=== PATIENT | female | born 1945 | race Hispanic/Latino ===

== ENCOUNTER 2023-11-26 12:29 | Emergency (ER) | payer MEDICARE, OTHER ==
[~2023-11-26] VITALS: Ht 154.9 cm; Wt 75.3 kg
[2023-11-26 13:20] LABS: BASOPHILS # (AUTO) 0.08 K/uL (0.00-0.20); EOSINOPHILS # (AUTO) 0.08 K/uL (0.00-0.70); HEMATOCRIT 45.3 % (36-48); IMMATURE GRANULOCYTE ABSOLUTE 0.03 K/uL (0-1); LYMPHOCYTES % (AUTO) 23.4 % (21.0-51.0); MEAN CORPUSCULAR HEMOGLOBIN 31.1 pg (27.0-33.0); MEAN CORPUSCULAR HGB CONC 34.2 g/dL (32.0-36.0); MONOCYTES # (AUTO) 0.5 K/uL (0.1-1.0); MONOCYTES % (AUTO) 5.6 % (3.0-13.0); NEUTROPHILS # (AUTO) 5.8 K/uL (1.8-7.7); NEUTROPHILS % (AUTO) 68.6 % (40.0-77.0); PLATELET COUNT (AUTO) 277 K/uL (130-400); RED BLOOD CELL COUNT(AUTO) 4.98 MIL/uL (4.00-5.50); RED CELL DISTRIBUTION WIDTH 13.6 % (11.0-15.5); WHITE BLOOD COUNT (AUTO) 8.4 K/uL (4.8-10.8)
[2023-11-26 13:33] LABS: BILIRUBIN,TOTAL 1.9 mg/dL (0.2-1.0); CREATININE 0.8 mg/dL (0.5-1.0); TOTAL PROTEIN, SERUM 7.9 g/dL (6.0-8.3)
[2023-11-26 13:34] LABS: POTASSIUM 2.8 mmol/L (3.5-5.1)
[2023-11-26 13:45] LABS: B-TYPE NATRIURETIC PEPTIDE 13 pg/mL (0-100)
[2023-11-26] MEDS: POTASSIUM BICARB/CIT AC 25 MEQ TABLET.EFF PO ONE (14:22)
[2023-11-26] MEDS: ALBUTEROL 0.083% 2.5 MG/3 ML INH IH ONE (16:47)
[2023-11-26 16:48] VITALS: PULSE 62; RESP 16
[2023-11-26 17:26] LABS: CREATININE 0.9 mg/dL (0.5-1.0); POTASSIUM 4.1 mmol/L (3.5-5.1)
[2023-11-26 17:41] VITALS: BP 138/75; PULSE 79; RESP 16; O2SAT 96
== END 2023-11-26 18:15 | disposition home or self-care (01) ==
LOC: EDH 12:29
DX: R06.09 Other forms of dyspnea (principal); E87.6 Hypokalemia; E80.6 Other disorders of bilirubin metabolism; I11.0 Hypertensive heart disease with heart failure; I50.9 Heart failure, unspecified; J44.9 Chronic obstructive pulmonary disease, unspecified; E78.00 Pure hypercholesterolemia, unspecified; Z90.49 Acquired absence of other specified parts of digestive tract; Z98.890 Other specified postprocedural states
CPT/HCPCS: 36415; 71045; 80048; 80053; 83880; 84484; 85025; 93005; 94640; 94664

== ENCOUNTER 2025-01-14 05:38 | Observation (INO) | payer MEDICARE, OTHER ==
[2025-01-12 12:39] LABS: IMMATURE GRANULOCYTE ABSOLUTE 0.04 K/uL (0-1); NUCLEATED RED BLOOD CELLS 0.0 % (0.0-0.19); PLATELET COUNT (AUTO) 256 K/uL (130-400); RED BLOOD CELL COUNT(AUTO) 4.43 MIL/uL (4.00-5.50); RED CELL DISTRIBUTION WIDTH 13.5 % (11.0-15.5); WHITE BLOOD COUNT (AUTO) 7.9 K/uL (4.8-10.8)
[2025-01-12 12:47] LABS: CREATININE 0.7 mg/dL (0.5-1.0); GLOMERULAR FILTR. RATE CALC 89.0 mL/min (>90); GLUCOSE,RANDOM 99.0 mg/dL (70-105); SODIUM SERUM 145.0 mmol/L (136-145); UREA NITROGEN, BLOOD 16.0 mg/dL (7-18)
[2025-01-12 12:48] VITALS: BP 123/54; PULSE 59; RESP 13; TEMP 97.5
[2025-01-12 12:48] LABS: INR 0.98 (0.85-1.15)
--- NOTE | 2025-01-12 13:45 | NUR ---
preop incentive spirometry done by corona saleh
[2025-01-14] VITALS (25 sets, daily range): BP systolic 109–144; BP diastolic 49–76; PULSE 50–66; RESP 13–20; TEMP 97.5–98.7
[~2025-01-14] VITALS: Ht 152.4 cm; Wt 74.4 kg
[~2025-01-14 05:38] MED LIST: ATOR40TA71 PO; BREYNA IH; CHOL100040 PO; CLOP75TA32 PO; MAGN250C PO; METO25TA6 PO; MVI PO; VITAMIN B12 PO
[2025-01-14] MEDS ORDERED: MIDAZOLAM HCL 1 MG/ML 2ML VIAL ONE (06:46)
[2025-01-14] MEDS ORDERED: TRANEXAMIC ACID 1000MG/10ML ONE (07:31)
[2025-01-14] MEDS: LACTATED RINGERS 1000ML 1,000 ML IV ONE (07:54)
[2025-01-14] MEDS ORDERED: NEOSTIGMINE METHYLSULFATE 1MG/ML IV ONE (09:54)
[2025-01-14] MEDS ORDERED: GLYCOPYRROLATE 0.2 MG/ML 5 ML VIAL ONE (09:54)
[2025-01-14] MEDS ORDERED: FERROUS FUMARATE 324 MG TABLET PO PRN (10:00)
[2025-01-14] MEDS ORDERED: PoTASSium chl 10% ELIXIR 20MEQ 20 MEQ/15 ML UDCUP PO PRN (10:00)
[2025-01-14] MEDS ORDERED: HYDROcodone/APAP 5/325 1 TAB TABLET PO PRN (10:00)
[2025-01-14] MEDS ORDERED: BREYNA IH PRN (10:00)
[2025-01-14] MEDS ORDERED: CALCIUM CARB 500MG PO PRN (10:00)
--- NOTE | 2025-01-14 11:40 | HMCIMG ---
EXAM: CR right Knee, 2 View. CLINICAL HISTORY: S/P RT TKA SURGERY COMPARISON: None provided. FINDINGS: Cemented right total knee arthroplasty is in near anatomic alignment with no periprosthetic fracture appreciated. There are appropriate postsurgical changes about the right knee joint. IMPRESSION: 1. Status post right total knee arthroplasty with near anatomic alignment; no periprosthetic fracture. /Sadorus
--- NOTE | 2025-01-14 11:53 | OP ---
Operative Note: DATE OF PROCEDURE: 01/14/25 PREOPERATIVE DIAGNOSIS: Right knee osteoarthritis. POSTOPERATIVE DIAGNOSIS: Right knee osteoarthritis. PROCEDURE PERFORMED: Right knee total knee arthroplasty. SURGEON: Alicia Padron MD STONE CUTTER: Darlyn Johnson and Korin Gaxiola. ANESTHESIA: General with adductor canal block. ANESTHESIA: HAIRSPRING CUTTER Sidney Weiss. ESTIMATED BLOOD LOSS: 50cc. COMPLICATIONS: None. DRAINS: None. SPECIMENS REMOVED: resected bone. Not sent to pathology. IMPLANTS: [employer] Journey II BCS size 4 Oxinium femur, size 3 tibial base plate, 29 x 7.5 mm patella, 12 mm polyethylene STATEMENT OF MEDICAL NECESSITY: The patient is a 79-year-old female who suffers from right knee osteoarthritis failing conservative management. After discussion of the risks, benefits, and alternatives with the patient, they voluntarily agreed to undergo the aforementioned procedure. DESCRIPTION OF PROCEDURE: Patient was properly identified in the preoperative holding area. Surgical site marking was verified and surgery consent reviewed. The patient was then taken to the operating room and placed in supine position on the OR table. After induction of general anesthesia, preoperative antibiotics were given, all bony prominences were well-padded, and a well padded tourniquet was applied but not inflated at this time. The right lower extremity was then prepped and draped in usual sterile fashion. Surgical time out was done verifying correct surgery, side, site, and location to be performed. We then began the procedure by exsanguinating the limb using an Esmarch and inflating the tourniquet to 350 mmHg. At this point, we made an anterior midline incision using a 10 blade, coming down sharply the level of the fascia. Skin flaps were elevated medially and laterally. We then obtained a clean 10 blade and performed a standard medial parapatellar arthrotomy. We excised the infrapatellar fat pad. We performed our soft tissue releases off of the tibia. We transected the ACL and removed the anterior portion of the medial & lateral meniscus. We then brought the knee into hyperflexion with the patella everted. We used our entry reamer to enter the femoral canal. We then placed our intramedullary cutting guide for our distal femoral cutting block. We then performed our distal femoral osteotomy ensuring appropriate rotation and removed the bony wafer. However, secondary to hypoplastic lateral femoral condyle we elected to go ahead and take a plus two cut off of the distal femur. We then removed these pins and block and then used jig 2 to size the distal femur with the after mentioned size found. We then placed our 5-in-1 cutting block in 5 degrees of external rotation and took our 5 cuts ensuring to protect the patellar tendon and the collateral ligaments. We then removed the cutting block and our bony fragments using a curved osteotome. We then placed our PCL retractor subluxating the tibia anteriorly. Using an extra medullary tibial cutting guide, we hung the block for our proximal tibial cut taking 2 mm off the more diseased portion. Prior to pinning this block in place, we ensured appropriate varus/valgus alignment and posterior slope similar to the [place] slope of the patient's knee. We then performed our proximal tibial osteotomy and removed the bony wafer using Bovie electrocautery to release any remaining soft tissue attachments. We then used our tibial sizing paddle and checked once more for varus & valgus alignment and found this to be appropriate. At this point, we pinned our tibial paddle in place. We then removed the PCL retractor and subluxated the tibia posteriorly while we placed our femoral trial component. We then finished preparing the notch with the reamer and box chisel. The notch portion of the trial femoral component was then placed. A posterior stabilized polyethylene, size 9 trial was placed. This was immediately increased up to a size 11 due to laxity with varus and valgus stress. The knee was then taken through range of motion and found to have stable full range of motion. We then placed a bump under the ankle and everted the patella to perform our freehand cut of the undersurface the patella. We then sized our patella and reamed to the lug holes for this. We placed our trial patellar component and begin to take the knee through range of motion. The patella had significant lateral tracking so we performed a lateral release that was aggressive. We checked our tibial component rotation to ensure this was not causing lateral pull. We recut the tibia allowing for some of the valgus to remain and had better tracking after performing this. At this point we began removing our trial components and punched the tibial keel prior to removing our tibial trial component. Final components were opened and cement was mixed on the back table while we injected local cocktail in the posterior capsule. We then thoroughly irrigated out the bone and dried the bony surfaces. We cemented our tibial component in place ensuring to remove excess cement and placed our trial polyethylene. We then cemented our femoral component in place once again taking time to ensure excess cement was removed leg was brought into full extension to help squeeze the excess cement from around the femoral component. We then brought the knee back in a flexion to remove this portion of the cement at this point we placed the ankle in a bump thoroughly irrigated off the patellar component and cemented our patellar component in standard fashion again removing excess cement. While we waited for the cement to cure, we thoroughly irrigated out the wound with normal saline. Once our cement had cured, we took the knee through a range of motion and found full and stable range of motion. We then elected to use the size 12 polyethylene and removed our trial polyethylene. We impacted our final polyethylene component in place in standard fashion and took the knee through a range of motion check once more. This was satisfactory so we began to repair the arthrotomy using #1 Vicryl in interrupted [id number] fashion. Subcutaneous tissue was repaired using 2-0 Vicryl. Running subcuticular 3-0 Monocryl stitch with Dermabond placed over this for the skin. We then applied a foam barrier dressing and a pressure dressing consisting of 4 x 4's fluffs and an Colin wrap. The tourniquet was then deflated. Patient was awakened from anesthesia, and they were taken to the recovery room in stable condition. ALICIA PADRON MD Jan 14, 2025 11:53
--- NOTE | 2025-01-14 12:40 | NUR ---
PT is received form the recovery room. She is oriented to her room and on the use of the call mcg[place]. She is encouraged to call for any of her needs. An ICE pac is placed over her right knee. The recovery room has already notified her family of her arrival. the bedis left in a low position.
--- NOTE | 2025-01-14 15:03 | DS ---
Discharge Summary Hospital Course Summary: The patient was admitted to the hospital postoperatively on 01/14/2025 after undergoing right total knee arthroplasty. They did well with routine postoperative pain control. They worked well with physical therapy. They developed some acute blood loss anemia but remained asymptomatic. The hospital course was otherwise uncomplicated. They were subsequently able to be discharged on postoperative day 2 once discharge arrangements were [facility]. Manager Licensing(s): None Procedure(s): Right total knee arthroplasty, 01/14/2025 Assessment/Plan: ASSESSMENT: Status post right total knee arthroplasty Acute blood loss anemia PLAN: See discharge instructions Discharge Instructions: Begin working with physical therapy at the facility.. Dressing may be removed 01/16/2025 and left open to air. Showers ok allowing soap and water to run over the wound. Pat dry. Do not submerge wound in tub/pool. Do not apply ointments. Do not apply Betadine. Do not apply peroxide. Ice packs to decrease pain/swelling. Prescriptions have been sent to the pharmacy: *[place] 5/325mg 1-2 tab every 6 hours as needed for severe pain. (please call for refills) Cyclobenzaprine 5mg 1 tab every 8 hours as needed for muscle spasm pain. Gabapentin 100mg 1 tab every 8 hours (may discontinue if drowsy). Colace 100mg 1 tab orally twice a day as needed for constipation. Resume your home dose of Plavix to prevent blood clots. Follow up at [facility] on February 05 at 9:30 a.m. Home Medications: Active Scripts Hydrocodone/Acetaminophen (Hydrocodon-Acetaminophen 5-325) 5 Mg-325 Mg Tablet, 1-2 TAB PO Q6HPRN PRN for post op pain, #56 TAB 0 Refills Prov:YAZ RODRIGUEZ MD 01/16/25 Reported Medications [Breyna] No Conflict Check, 2 PUFF IH AD PRN for SHORTNESS OF BREATH 01/12/25 Atorvastatin Calcium (Atorvastatin Calcium) 40 Mg Tablet, 40 MG PO HS, TAB 01/12/25 Clopidogrel Bisulfate (Clopidogrel) 75 Mg Tablet, 75 MG PO DAILY, TAB 01/12/25 Metoprolol Tartrate (Metoprolol Tartrate) 25 Mg Tablet, 25 MG PO BID, TAB 01/12/25 Cholecalciferol (Vitamin D3) (Vitamin D3) 25 Mcg (1000 Unit) Capsule, 25 MCG PO DAILY, CAP 01/12/25 [Vitamin B12] No Conflict Check, 2500 MCG PO DAILY 01/12/25 [Mvi] No Conflict Check, 1 TAB PO DAILY 01/12/25 Magnesium Citrate and Oxide (Magnesium) 250 Mg Capsule, 250 MG PO DAILY, CAP 01/12/25 YAZ RODRIGUEZ MD Jan 14, 2025 15:03
[2025-01-14] MEDS: HYDROcodone/APAP 5/325 1 TAB TABLET PO PRN (15:48)
[2025-01-14] MEDS: 0.9%NACL 1000ML 1,000 ML IV SCH (15:51)
--- NOTE | 2025-01-14 20:00 | NUR ---
icepacks applied to right knee repositioned
--- NOTE | 2025-01-15 | NUR ---
icepacks placed to right knee pt repositioned
[2025-01-15 03:45] VITALS: PULSE 66; RESP 20; TEMP 98.2
[2025-01-15 03:46] LABS: NUCLEATED RED BLOOD CELLS 0.0 % (0.0-0.19); PLATELET COUNT (AUTO) 200.0 K/uL (130-400); RED BLOOD CELL COUNT(AUTO) 3.66 MIL/uL (4.00-5.50); RED CELL DISTRIBUTION WIDTH 13.5 % (11.0-15.5); WHITE BLOOD COUNT (AUTO) 11.2 K/uL (4.8-10.8)
[2025-01-15 03:53] LABS: CREATININE 0.7 mg/dL (0.5-1.0); GLOMERULAR FILTR. RATE CALC 89.0 mL/min (>90); GLUCOSE,RANDOM 130.0 mg/dL (70-105); SODIUM SERUM 144.0 mmol/L (136-145); UREA NITROGEN, BLOOD 12.0 mg/dL (7-18)
--- NOTE | 2025-01-15 06:30 | NUR ---
pt up out of bed icepacks to right knee applied alden bandage removed pt siting in chair at bedside pt faily tolerated
[2025-01-15] MEDS: PoTASSium chloRIDE 20MEQ ER 20 MEQ ERTAB PO PRN (07:43)
[2025-01-15 08:00] VITALS: BP 111/58; PULSE 61; RESP 18; TEMP 98.2
--- NOTE | 2025-01-15 08:04 | PN ---
Ortho postop day one. This morning patient is awake alert and oriented. She is seated out of bed. Enjoying her breakfast. No acute distress. Reporting adequate pain control. Vital signs have remained stable. Voiding on her own. Laboratory results reviewed. Noted to have a drop in hemoglobin and hematocrit as expected after TKA. Patient is currently asymptomatic. We will continue to observe and address per protocol as necessary. Operative findings discussed with the patient. Reinforced incentive spirometry. Bilateral SCD sleeves currently present and on. Ice present to the operative site. Colin bandage has already been removed. The anterior dressing is intact. Gastrocnemius soft nontender. Negative Homans. I have provided a footstool and instructed to alternate extension and flexion while seated. Ambulated just show a few steps in the room yesterday and is pending further physical therapy this morning. Anticipated discharge goal is skilled nurse facility. Assessment: Status post right total knee arthroplasty Acute postoperative blood loss anemia. Plan: Continue with Dr. Padron's TKA protocol and discharge planning. Acute postoperative blood loss anemia addressed with the protocol as necessary Vitals/Labs Vital Signs Date Time Temp Pulse Resp B/P (MAP) Pulse Ox O2 Delivery O2 Flow Rate FiO2 01/15/25 03:45 98.2 66 20 Room Air 01/14/25 23:38 96 01/14/25 12:46 2 28 Laboratory Tests 01/15/25 03:23 Medications Current Medications Cefazolin Sodium 2 gm STK-MED ONCE .ROUTE; Start 01/14/25 at 06:32; Stop 01/14/25 at 06:32; Status DC Lactated Ringer's 1,000 ml @ As Directed STK-MED ONCE IV Last administered on 01/14/25at 07:54; Start 01/14/25 at 06:33; Stop 01/14/25 at 06:33; Status DC Ketorolac Tromethamine 30 mg STK-MED ONCE .ROUTE; Start 01/14/25 at 06:35; Stop 01/14/25 at 06:35; Status DC Ropivacaine 150 mg STK-MED ONCE .ROUTE; Start 01/14/25 at 06:36; Stop 01/14/25 at 06:36; Status DC Propofol 200 mg STK-MED ONCE IV; Start 01/14/25 at 06:46; Stop 01/14/25 at 06:46; Status DC Midazolam HCl 2 mg STK-MED ONCE .ROUTE; Start 01/14/25 at 06:46; Stop 01/14/25 at 06:46; Status DC Rocuronium Copake 50 mg STK-MED ONCE .ROUTE; Start 01/14/25 at 06:47; Stop 01/14/25 at 06:46; Status DC Fentanyl Citrate 100 mcg STK-MED ONCE .ROUTE; Start 01/14/25 at 06:47; Stop 01/14/25 at 06:47; Status DC Ropivacaine 150 mg STK-MED ONCE .ROUTE; Start 01/14/25 at 06:49; Stop 01/14/25 at 06:50; Status DC Tranexamic Acid 1,000 mg STK-MED ONCE .ROUTE; Start 01/14/25 at 07:31; Stop 01/14/25 at 07:31; Status DC Acetaminophen 100 ml @ As Directed STK-MED ONCE .ROUTE; Start 01/14/25 at 07:41; Stop 01/14/25 at 07:41; Status DC Phenylephrine HCl 10 mg STK-MED ONCE IV; Start 01/14/25 at 07:59; Stop 01/14/25 at 08:00; Status DC Cefazolin Sodium 2 gm STK-MED ONCE IVPB Last administered on 01/14/25at 07:49; Start 01/14/25 at 07:49; Stop 01/14/25 at 08:14; Status DC Ropivacaine 150 mg STK-MED ONCE IR Last administered on 01/14/25at 08:04; Start 01/14/25 at 08:04; Stop 01/14/25 at 08:14; Status DC Ketorolac Tromethamine 30 mg STK-MED ONCE IJ Last administered on 01/14/25at 08:04; Start 01/14/25 at 08:04; Stop 01/14/25 at 08:14; Status DC Sodium Chloride 1,000 ml @ 100 mls/hr Q10H IV Last administered on 01/14/25at 20:00; Start 01/14/25 at 10:00; Stop 01/15/25 at 09:59 Polyethylene Glycol 17 gm DAILY PO; Start 01/15/25 at 09:00; Stop 02/14/25 at 08:59 Bisacodyl 10 mg DAILY PRN RC; Start 01/17/25 at 10:00; Stop 02/16/25 at 09:59 Ketorolac Tromethamine 15 mg Q6H PRN IV; Start 01/15/25 at 10:00; Stop 01/20/25 at 09:59 Ferrous Fumarate 324 mg DAILY PRN PO; Start 01/14/25 at 10:00; Stop 02/13/25 at 09:59 Ondansetron HCl 4 mg Q6H PRN IVP; Start 01/14/25 at 10:00; Stop 02/13/25 at 09:59 Calcium Carbonate 500 mg Q12H PRN PO; Start 01/14/25 at 10:00; Stop 02/13/25 at 09:59 Cefazolin Sodium 2 gm Q8H IVPB Last administered on 01/14/25at 22:53; Start 01/14/25 at 15:00; Stop 01/14/25 at 23:01; Status DC Cyclobenzaprine HCl 5 mg Q8H PRN PO; Start 01/14/25 at 10:00; Stop 02/13/25 at 09:59 Gabapentin 100 mg TID PO Last administered on 01/14/25at 21:21; Start 01/14/25 at 14:00; Stop 02/13/25 at 13:59 Aspirin 325 mg DAILY PO; Start 01/15/25 at 09:00; Stop 02/14/25 at 08:59 Ketorolac Tromethamine 15 mg Q8H IV Last administered on 01/15/25at 02:29; Start 01/14/25 at 10:00; Stop 01/15/25 at 02:01; Status DC Docusate Sodium 100 mg BID PO Last administered on 01/14/25at 21:21; Start 01/14/25 at 21:00; Stop 02/13/25 at 20:59 Potassium Chloride 100 ml @ 100 mls/hr AD PRN IV; Start 01/14/25 at 10:00; Stop 02/13/25 at 09:59 Potassium Chloride 20 meq AD PRN PO; Start 01/14/25 at 10:00; Stop 02/13/25 at 09:59 Potassium Chloride 20 meq AD PRN PO Last administered on 01/15/25at 07:43; Start 01/14/25 at 10:00; Stop 02/13/25 at 09:59 Tramadol HCl 50 mg Q6H PRN PO; Start 01/14/25 at 10:00; Stop 01/19/25 at 09:59 Acetaminophen/ Hydrocodone Bitart Q4H PRN PO; Start 01/14/25 at 10:00; Stop 01/14/25 at 09:54; Status DC Atorvastatin Calcium 40 mg HS PO Last administered on 01/14/25at 21:21; Start 01/14/25 at 21:00; Stop 02/13/25 at 20:59 Metoprolol Tartrate 25 mg BID PO Last administered on 01/14/25at 21:21; Start 01/14/25 at 21:00; Stop 02/13/25 at 20:59 Home Med (Cholecalciferol (Vitamin D3) 25 MCG) DAILY PO; Start 01/15/25 at 09:00; Stop 02/14/25 at 08:59 Home Med (Magnesium Citrate and Ox... DAILY PO; Start 01/15/25 at 09:00; Stop 02/14/25 at 08:59 Home Med ([Breyna] 2 PUFF) AD PRN IH; Start 01/14/25 at 10:00; Stop 02/13/25 at 09:59 Multivitamins Therapeutic 1 tab DAILY PO; Start 01/15/25 at 09:00; Stop 02/14/25 at 08:59 Home Med ([Vitamin B12] 2,500 MCG) DAILY PO; Start 01/15/25 at 09:00; Stop 02/14/25 at 08:59 Acetaminophen/ Hydrocodone Bitart 1 tab Q4H PRN PO; Start 01/14/25 at 10:00; Stop 01/19/25 at 09:59 Acetaminophen/ Hydrocodone Bitart 2 tab Q4H PRN PO Last administered on 01/15/25at 06:49; Start 01/14/25 at 10:00; Stop 01/19/25 at 09:59 Fentanyl Citrate 100 mcg STK-MED ONCE .ROUTE; Start 01/14/25 at 09:53; Stop 01/14/25 at 09:53; Status DC Glycopyrrolate 1 mg STK-MED ONCE .ROUTE; Start 01/14/25 at 09:54; Stop 01/14/25 at 09:55; Status DC Neostigmine Methylsulfate 10 mg STK-MED ONCE IV; Start 01/14/25 at 09:54; Stop 01/14/25 at 09:55; Status DC Ketorolac Tromethamine 15 mg STK-MED ONCE .ROUTE; Start 01/14/25 at 10:31; Stop 01/14/25 at 10:31; Status DC Fentanyl Citrate 100 mcg STK-MED ONCE .ROUTE Last administered on 01/14/25at 10:41; Start 01/14/25 at 10:38; Stop 01/14/25 at 10:38; Status DC AURA PLUMMER NP Jan 15, 2025 08:04
[2025-01-15] MEDS: ASPIRIN 325MG EC TAB PO SCH (08:25)
[2025-01-15] MEDS: MULTIVITAMIN TABLET PO SCH (08:26)
[2025-01-15] MEDS ORDERED: VITAMIN B12 2500 MCG PO SCH (09:00)
[2025-01-15] MEDS: MAGNESIUM CITRATE AND OXIDE 250 MG PO SCH (09:00)
[2025-01-15] MEDS: (Cholecalciferol (Vitamin D3) 25 MCG) PO SCH (09:00)
--- NOTE | 2025-01-15 11:15 | NUR ---
[facility] CM MET WITH INITIAL ASSESSMENT DONE. PATIENT IS INDEPENDENT PRIOR TO SURGERY, LIVES AT HOME [place]. PT VERBALIZED SHE HAS A ROLLATOR WALKER, WHEELCHAIR, NEBULIZER MACHINE. DENIES ANY EQUIPMENT/SERVICES. FEELS SAFE TO GO BACK HOME, DAUGHTER AND SON ABLE TO ASSIST WITH TRANSPORTATION AND NEEDS NECESSARY. DISCUSSED MD RECOMMENDATIONS FOR SHORT TERM REHAB AT [facility], PT AGREEABLE, CONSENT SIGNED DENISE FOR [facility]. [facility] ONCE APPROVED. CM TO CONTINUE TO FOLLOW UP. Addendum: 01/15/25 at 1558 by SCOTTIE BHANDARI LVN CM Amended: Links added.
[2025-01-15 12:00] VITALS: BP 102/52; PULSE 63; RESP 18; TEMP 97.8
[2025-01-15 16:00] VITALS: BP 119/61; PULSE 76; RESP 18; TEMP 97.6
--- NOTE | 2025-01-15 16:22 | NUR ---
SW met with pt and dgt due to wanting information on a MPOA. Pt assigned Gabrielle Monroe, daughter, as her MPOA with a first alternate of Kike Rosa Jr (son).
[2025-01-15 19:45] VITALS: O2SAT 96
[2025-01-15] MEDS: CYCLOBENZAPRINE HCL 10 MG TABLET PO PRN (19:46)
[2025-01-15 20:00] VITALS: BP 118/60; PULSE 66; RESP 20; TEMP 98.3
[2025-01-16] VITALS (8 sets, daily range): BP systolic 101–164; BP diastolic 45–78; PULSE 62–98; RESP 13–20; TEMP 98.1–101.7; O2SAT 97–98
[2025-01-16] MEDS: CYANOCOBALAMIN (VITAMIN B-12) 1,000 MCG TABLET PO SCH (08:32)
[2025-01-16] MEDS ORDERED: GABA100C PO (14:09)
[2025-01-16] MEDS ORDERED: HYDR-4060 PO (14:09)
[2025-01-16] MEDS ORDERED: DOCU-116 PO (14:09)
[2025-01-16] MEDS ORDERED: CYCL-309 PO (14:09)
[2025-01-16] MEDS: LACTULOSE 20 GM/30 ML UDCUP PO ONE (16:39)
[2025-01-16] MEDS: HYDROcodone/APAP 5/325 1 TAB TABLET PO PRN (17:00)
[2025-01-17] VITALS: BP 111/53; PULSE 66; RESP 18; TEMP 99.3
[2025-01-17 04:00] VITALS: BP 94/41; PULSE 58; RESP 18; TEMP 97.9
[2025-01-17 04:22] LABS: IMMATURE GRANULOCYTE ABSOLUTE 0.07 K/uL (0-1); NUCLEATED RED BLOOD CELLS 0.0 % (0.0-0.19); PLATELET COUNT (AUTO) 192 K/uL (130-400); RED BLOOD CELL COUNT(AUTO) 3.28 MIL/uL (4.00-5.50); RED CELL DISTRIBUTION WIDTH 13.6 % (11.0-15.5); WHITE BLOOD COUNT (AUTO) 8.3 K/uL (4.8-10.8)
[2025-01-17 04:36] LABS: ASPARTATE AMINOTRANSFERASE 200.0 U/L (10-37); CREATININE 0.8 mg/dL (0.5-1.0); GLOMERULAR FILTR. RATE CALC 76.0 mL/min (>90); GLUCOSE,RANDOM 102.0 mg/dL (70-105); SODIUM SERUM 137.0 mmol/L (136-145); TOTAL PROTEIN, SERUM 5.7 g/dL (6.0-8.3); UREA NITROGEN, BLOOD 18.0 mg/dL (7-18)
[2025-01-17 08:00] VITALS: BP 138/59; PULSE 69; RESP 18; TEMP 98.8
--- NOTE | 2025-01-17 08:30 | NUR ---
PATIENT RE INSTRUCTED ON THE IMPORTANCE OF THE INCENTIVE SPIROMETRY THERAPY. PATIENT WAS ABLE TO PERFORM IS 1500 AT THIS TIME.PATIENT UP IN CHAIR BREAKFAST.
--- NOTE | 2025-01-17 09:39 | HMCIMG ---
CHEST 1VW REASON: FEVER COMPARISON: Prior study from 11/26/2023 is available. FINDINGS: Single view of the chest was obtained. Lungs are clear. The cardiac silhouette is within the limits of normal with median sternotomy.. There is no pulmonary vascular congestion. Mediastinum and bony thorax appear unremarkable. IMPRESSION: 1. Status post median sternotomy 2. No evidence of airspace consolidation or pulmonary venous congestion and unchanged from prior study..
--- NOTE | 2025-01-17 11:17 | PN ---
POD 3 discharge held yesterday due fever, chills, c/o weakness. CXR clear CBC no elevated WBC BMP kidney function normal elevated LFTs no further fevers. clear to discharge today. Vitals/Labs Vital Signs Date Time Temp Pulse Resp B/P (MAP) Pulse Ox O2 Delivery O2 Flow Rate FiO2 01/17/25 08:00 98.8 69 18 138/59 93 Room Air 01/16/25 20:35 0 21 Laboratory Tests 01/17/25 03:38 Medications Current Medications Cefazolin Sodium 2 gm STK-MED ONCE .ROUTE; Start 01/14/25 at 06:32; Stop 01/14/25 at 06:32; Status DC Lactated Ringer's 1,000 ml @ As Directed STK-MED ONCE IV Last administered on 01/14/25at 07:54; Start 01/14/25 at 06:33; Stop 01/14/25 at 06:33; Status DC Ketorolac Tromethamine 30 mg STK-MED ONCE .ROUTE; Start 01/14/25 at 06:35; Stop 01/14/25 at 06:35; Status DC Ropivacaine 150 mg STK-MED ONCE .ROUTE; Start 01/14/25 at 06:36; Stop 01/14/25 at 06:36; Status DC Propofol 200 mg STK-MED ONCE IV; Start 01/14/25 at 06:46; Stop 01/14/25 at 06:46; Status DC Midazolam HCl 2 mg STK-MED ONCE .ROUTE; Start 01/14/25 at 06:46; Stop 01/14/25 at 06:46; Status DC Rocuronium [place] 50 mg STK-MED ONCE .ROUTE; Start 01/14/25 at 06:47; Stop 01/14/25 at 06:46; Status DC Fentanyl Citrate 100 mcg STK-MED ONCE .ROUTE; Start 01/14/25 at 06:47; Stop 01/14/25 at 06:47; Status DC Ropivacaine 150 mg STK-MED ONCE .ROUTE; Start 01/14/25 at 06:49; Stop 01/14/25 at 06:50; Status DC Tranexamic Acid 1,000 mg STK-MED ONCE .ROUTE; Start 01/14/25 at 07:31; Stop 01/14/25 at 07:31; Status DC Acetaminophen 100 ml @ As Directed STK-MED ONCE .ROUTE; Start 01/14/25 at 07:41; Stop 01/14/25 at 07:41; Status DC Phenylephrine HCl 10 mg STK-MED ONCE IV; Start 01/14/25 at 07:59; Stop 01/14/25 at 08:00; Status DC Cefazolin Sodium 2 gm STK-MED ONCE IVPB Last administered on 01/14/25at 07:49; Start 01/14/25 at 07:49; Stop 01/14/25 at 08:14; Status DC Ropivacaine 150 mg STK-MED ONCE IR Last administered on 01/14/25at 08:04; Start 01/14/25 at 08:04; Stop 01/14/25 at 08:14; Status DC Ketorolac Tromethamine 30 mg STK-MED ONCE IJ Last administered on 01/14/25at 08:04; Start 01/14/25 at 08:04; Stop 01/14/25 at 08:14; Status DC Sodium Chloride 1,000 ml @ 100 mls/hr Q10H IV Last administered on 01/14/25at 20:00; Start 01/14/25 at 10:00; Stop 01/15/25 at 09:59; Status DC Polyethylene Glycol 17 gm DAILY PO Last administered on 01/17/25at 09:47; Start 01/15/25 at 09:00; Stop 02/14/25 at 08:59 Bisacodyl 10 mg DAILY PRN RC; Start 01/17/25 at 10:00; Stop 02/16/25 at 09:59 Ketorolac Tromethamine 15 mg Q6H PRN IV Last administered on 01/17/25at 00:26; Start 01/15/25 at 10:00; Stop 01/20/25 at 09:59 Ferrous Fumarate 324 mg DAILY PRN PO; Start 01/14/25 at 10:00; Stop 02/13/25 at 09:59 Ondansetron HCl 4 mg Q6H PRN IVP; Start 01/14/25 at 10:00; Stop 02/13/25 at 09:59 Calcium Carbonate 500 mg Q12H PRN PO; Start 01/14/25 at 10:00; Stop 02/13/25 at 09:59 Cefazolin Sodium 2 gm Q8H IVPB Last administered on 01/14/25at 22:53; Start 01/14/25 at 15:00; Stop 01/14/25 at 23:01; Status DC Cyclobenzaprine HCl 5 mg Q8H PRN PO Last administered on 01/15/25at 19:46; Start 01/14/25 at 10:00; Stop 02/13/25 at 09:59 Gabapentin 100 mg TID PO Last administered on 01/17/25at 09:46; Start 01/14/25 at 14:00; Stop 02/13/25 at 13:59 Aspirin 325 mg DAILY PO Last administered on 01/17/25at 09:47; Start 01/15/25 at 09:00; Stop 02/14/25 at 08:59 Ketorolac Tromethamine 15 mg Q8H IV Last administered on 01/15/25at 02:29; Start 01/14/25 at 10:00; Stop 01/15/25 at 02:01; Status DC Docusate Sodium 100 mg BID PO Last administered on 01/17/25at 09:46; Start 01/14/25 at 21:00; Stop 02/13/25 at 20:59 Potassium Chloride 100 ml @ 100 mls/hr AD PRN IV; Start 01/14/25 at 10:00; Stop 02/13/25 at 09:59 Potassium Chloride 20 meq AD PRN PO; Start 01/14/25 at 10:00; Stop 02/13/25 at 09:59 Potassium Chloride 20 meq AD PRN PO Last administered on 01/15/25at 18:22; Start 01/14/25 at 10:00; Stop 02/13/25 at 09:59 Tramadol HCl 50 mg Q6H PRN PO; Start 01/14/25 at 10:00; Stop 01/19/25 at 09:59 Acetaminophen/ Hydrocodone Bitart Q4H PRN PO; Start 01/14/25 at 10:00; Stop 01/14/25 at 09:54; Status DC Atorvastatin Calcium 40 mg HS PO Last administered on 01/16/25at 20:34; Start 01/14/25 at 21:00; Stop 02/13/25 at 20:59 Metoprolol Tartrate 25 mg BID PO Last administered on 01/17/25at 09:45; Start 01/14/25 at 21:00; Stop 02/13/25 at 20:59 Home Med (Cholecalciferol (Vitamin D3) 25 MCG) DAILY PO; Start 01/15/25 at 09:00; Stop 02/14/25 at 08:59 Home Med (Magnesium Citrate and Ox... DAILY PO; Start 01/15/25 at 09:00; Stop 02/14/25 at 08:59 Home Med ([Breyna] 2 PUFF) AD PRN IH; Start 01/14/25 at 10:00; Stop 02/13/25 at 09:59 Multivitamins Therapeutic 1 tab DAILY PO Last administered on 01/17/25at 09:45; Start 01/15/25 at 09:00; Stop 02/14/25 at 08:59 Home Med ([Vitamin B12] 2,500 MCG) DAILY PO; Start 01/15/25 at 09:00; Stop 01/15/25 at 09:11; Status DC Acetaminophen/ Hydrocodone Bitart 1 tab Q4H PRN PO Last administered on 01/16/25at 17:00; Start 01/14/25 at 10:00; Stop 01/19/25 at 09:59 Acetaminophen/ Hydrocodone Bitart 2 tab Q4H PRN PO Last administered on 01/17/25at 09:44; Start 01/14/25 at 10:00; Stop 01/19/25 at 09:59 Fentanyl Citrate 100 mcg STK-MED ONCE .ROUTE; Start 01/14/25 at 09:53; Stop 01/14/25 at 09:53; Status DC Glycopyrrolate 1 mg STK-MED ONCE .ROUTE; Start 01/14/25 at 09:54; Stop 01/14/25 at 09:55; Status DC Neostigmine Methylsulfate 10 mg STK-MED ONCE IV; Start 01/14/25 at 09:54; Stop 01/14/25 at 09:55; Status DC Ketorolac Tromethamine 15 mg STK-MED ONCE .ROUTE; Start 01/14/25 at 10:31; Stop 01/14/25 at 10:31; Status DC Fentanyl Citrate 100 mcg STK-MED ONCE .ROUTE Last administered on 01/14/25at 10:41; Start 01/14/25 at 10:38; Stop 01/14/25 at 10:38; Status DC Vitamin B Complex 2,500 mcg DAILY PO Last administered on 01/17/25at 09:47; Start 01/16/25 at 09:00; Stop 02/15/25 at 08:59 Lactulose 20 gm ONCE ONCE PO Last administered on 01/16/25at 16:39; Start 01/16/25 at 16:30; Stop 01/16/25 at 16:31; Status DC YAZ RODRIGUEZ MD Jan 17, 2025 11:17
[2025-01-17 12:00] VITALS: BP 123/55; PULSE 69; RESP 17; TEMP 98
[2025-01-17 16:00] VITALS: BP 152/66; PULSE 74; RESP 20; TEMP 100.1
--- NOTE | 2025-01-17 16:43 | NUR ---
REPORT CALLED TO JOSEP FROM [facility]. CALL QUESTIONS AND CONCERNS ANSWERED. PENDING VAN TO PLASTER TENDER.
--- NOTE | 2025-01-17 17:45 | NUR ---
PATIENT DISCHARGED VIA EMS TO [facility], DR RODRIGUEZ NOTIFIED OF LOW GRADE TEMP PRIOR TO DISCHARGE ,INSTRUCTION TO REINFORCE FOR PATIENT TO CONTINUE WITH IS THERAPY AND OOB ACTIVITY RELAYED TO PATIENT WITH DAUGHTERS PRESENT .PATIENT VERBALIZED UNDERSTANDING.
== END 2025-01-17 17:45 ==
LOC: DAH 05:38 → DAHIP 05:39 → DAH 05:39 → 4AH 12:40
PROVIDERS: ADMIT Student in an Organized Health Care Education/Training Program; ATTEND Student in an Organized Health Care Education/Training Program
DX: M17.11 Unilateral primary osteoarthritis, right knee (principal); J45.909 Unspecified asthma, uncomplicated; I10 Essential (primary) hypertension; I25.10 Atherosclerotic heart disease of native coronary artery without angina pectoris; M25.561 Pain in right knee; D62 Acute posthemorrhagic anemia; Z79.899 Other long term (current) drug therapy; Z98.890 Other specified postprocedural states
CPT/HCPCS: 82040; 80048 ×2; 85025 ×2; 85610; 85730; 84134; 86140; 36415 ×3; 87641; 27447; 96376 ×3; 96365; 96366; 96375; 64447; 73560; 97161; 97116 ×6; 85027; 97530 ×7; 71045; 80053; G0378 ×80; A4663; J7120 ×2; J3010 ×3; J3490 ×3; J2250; J2704; J1885 ×8; J2710; J2795 ×3; J2371; J0690 ×4; C1713 ×2; C1776 ×2; A4649 ×2; A6255; A5120; A4215; A4223 ×2; A4213; A4222; A4221; A4216